=== PATIENT | female | born 1995 | race Caucasian/White ===

== ENCOUNTER 2021-01-08 20:32 | Emergency (ER) | payer OTHER, SELFPAY ==
[2021-01-08 20:35] VITALS: BP 152/84; PULSE 130; RESP 14; TEMP 37.2; O2SAT 99
[2021-01-08] MEDS: TET,DIPH,PERTUSS(ACELL),VAC/PF 0.5 ML SYRINGE IM (20:42)
--- NOTE | 2021-01-08 20:51 | ED.SKABFB ---
HPI - Skin/Abscess/Foreign Bdy General Chief complaint: Skin/Abscess/Foreign Body Stated complaint: RIGHT THUMB CUT Time Seen by Provider: 01/08/21 20:35 Source: patient Mode of arrival: Ambulatory Limitations: no limitations History of Present Illness HPI narrative: 25-year-old female nonsmoker with noncontributory medical history presents with her significant other and an avulsion type laceration to her right thumb suffered few hours ago. She was using a mandoline while preparing dinner when she accidentally cut herself. She was evaluated by a neighbor who was a nurse and had an episode of cleaning with Betadine and was wrapped very appropriately, bleeding its top prior to her arrival. Her last tetanus was 8 or 9 years ago. She denies any other injuries otherwise well and free of complaint. MD complaint: laceration Onset (ago): hour(s) Tetanus up to date: no Location: R hand Severity: mild Quality: aching Pain Consistency: constant Relieving factors: rest Exacerbating factors: movement Associated symptoms: denies other symptoms Treatments prior to arrival: bandages Related Data Allergies Allergy/AdvReac Type Severity Reaction Status Date / Time No Known Drug Allergies Allergy Verified 01/08/21 20:42 Review of Systems Constitutional Constitutional: Denies chills, Denies fatigue, Denies fever(s), Denies frequent falls, Denies lethargy and Denies weakness Eyes Eyes: Denies change in vision, Denies eye discharge, Denies irritation and Denies loss of vision ENT Ears, Nose, Mouth, and Throat: Denies change in voice, Denies dizziness, Denies neck pain, Denies sore throat and Denies throat swelling Cardiovascular Cardiovascular: Denies chest pain, Denies irregular heart rhythm, Denies lightheadedness, Denies palpitations, Denies dyspnea, Denies dyspnea on exertion and Denies orthopnea Respiratory Respiratory: Denies cough, Denies dyspnea, Denies dyspnea on exertion and Denies wheezing Gastrointestinal Gastrointestinal: Denies abdominal pain, Denies change in bowel habits, Denies diarrhea, Denies nausea and Denies vomiting Musculoskeletal Musculoskeletal: Denies neck pain and Denies numbness Integumentary/Breasts Skin/Breast: Denies pruritus, Denies erythema, Denies rash and Reports wounds Neurologic Neurologic: Denies behavioral changes, Denies confusion, Denies dizziness, Denies frequent falls, Denies loss of vision, Denies numbness and Denies weakness Psychiatric Psychiatric: Denies anxiety, Denies behavioral changes, Denies confusion, Denies depression, Denies homicidal ideation and Denies suicidal ideation Endocrine Endocrine: Denies fatigue, Denies flushing and Denies palpitations Hematologic/Lymphatic Hematologic/Lymphatic: Denies easy bruising Allergic/Immunologic Allergic/Immunologic: Denies urticaria, Denies throat swelling and Denies wheezing Patient History Social History Smoking Status: Never smoker Smoking Status: Never smoker alcohol intake frequency: 0-2 drinks per day Substance Use Type: does not use Exam Narrative Exam Narrative: GEN: AOx3 and in mild distress EYES: Pupils are equal, round, and reactive to light and accommodation. Extraoccular muscles are intact bilaterally. There is no subconjunctival hemorrhage or exudate. CHEST: Lungs are clear to auscultation bilaterally and free of wheezes, rales, or rhonchi. Tachycardic and regular rhythm, there are no murmurs, clicks, rubs, or gallops. There is no chest wall tenderness. ABD: Abdomen is soft and nontender. There is no guarding or rebound. Bowel sounds are normal in all 4 quadrants. There is no mass or organomegaly. EXT: Full painless ROM of all extremities with no loss of sensation or strength. SKIN: Warm, pink, and dry. No erythema or rash Initial Vital Signs Initial Vital Signs: Vital Signs Temperature 98.9 F 01/08/21 20:35 Pulse Rate 130 H 01/08/21 20:35 Respiratory Rate 14 01/08/21 20:35 Blood Pressure 152/84 H 01/08/21 20:35 Pulse Oximetry 99 01/08/21 20:35 Course Course Course Narrative: patient denies any chest pain, SOB, travel. She states she gets very nervous when visiting the doctor and her HR goes up. Discussed need for follow up or return if she develops CP, SOB Orders Ordered: Discontinued Medications Diphtheria/Tetanus/Acell Pertussis (Tet,Diph,Pertuss(Acell),Vac/Pf 0.5 Ml Syringe) 0.5 ml IM .ONCE ONE Stop: 01/08/21 20:38 Last Admin: 01/08/21 20:42 Dose: 0.5 ml Documented by: ZGELEYN Vital Signs Vital signs: Vital Signs - 8 hr 01/08/21 20:35 Temperature 98.9 F Pulse Rate 130 H Respiratory Rate 14 Blood Pressure 152/84 H Pulse Oximetry 99 Discharge Plan Departure Patient Disposition: Home Clinical Impression: Avulsion of skin of finger Instructions: DI for Avulsion Laceration (Not Requiring Sutures) Activity Restrictions/Additional Instructions: *You have been diagnosed with [avulsion laceration, not requiring sutures. Your tetanus was updated *What to do: *Take medications as directed: Tylenol or Motrin for pain *Follow up with your primary care provider in 2-3 days, call for an appointment. Let them know you were seen in the Emergency Department and that we ask that you be seen in follow up *Return to ER if you should have any new, worsening or concerning symptoms, such as [increased swelling, redness, red streaks, drainage or other bothersome symptoms]
[2021-01-08 20:52] VITALS: BP 152/84; PULSE 118; RESP 14; O2SAT 99
--- NOTE | 2021-01-08 20:52 | PC.NURSE ---
patient was dressed with a surgicel type hemostatic dressing and gauze with tape.
== END 2021-01-08 20:56 | disposition home or self-care (01) ==
PROVIDERS: Emergency Provider Emergency Medicine
DX: S61.001A Unspecified open wound of right thumb without damage to nail, initial encounter (principal); W45.8XXA Other foreign body or object entering through skin, initial encounter; Z23 Encounter for immunization
CPT/HCPCS: 90471; 99283; 90715

== ENCOUNTER → 2022-02-02 11:48 | Outpatient (CLI) | payer OTHER, SELFPAY ==
[2022-02-02 13:03] LABS: Appearance Urine UA CLEAR; Bilirubin Urine UA NEGATIVE (NEGATIVE); Color Urine UA YELLOW; Glucose Urine UA NEGATIVE (Negative); Ketones Urine UA NEGATIVE (NEGATIVE); Leukocyte Esterase Urine UA NEGATIVE (NEGATIVE); Nitrite Urine UA NEGATIVE (Negative); Occult Blood Urine UA NEGATIVE (Negative); Protein Urine UA NEGATIVE (Negative); Specific Gravity Urine UA 1.015 (1.000-1.035); Urobilinogen Urine UA 0.2 E.U./dL (0.2)
[2022-02-02 13:04] LABS: Add Manual Diff / Slide Review NO; Basophils Absolute Auto 0 /uL (0-100); Basophils Percent Auto 0.4 % (0-2); Eosinophils Absolute Auto 100 /uL (0-450); Eosinophils Percent Auto 1.2 % (2-4); Hemoglobin 13.7 g/dL (12.0-16.0); Lymphocytes Absolute Auto 1300 /uL (1100-4500); Lymphocytes Percent Auto 19.3 % (25-40); Mean Corpuscular HGB Conc 34.2 % (30-36); Mean Corpuscular Hemoglobin 29.8 PG (26-34); Mean Corpuscular Volume 87.1 fL (80-100); Monocytes Absolute Auto 400 /uL (0-900); Monocytes Percent Auto 5.6 % (3-14); Neutrophils Absolute Auto 5100 /uL (1500-7000); Neutrophils Percent Auto 73.5 % (50-75); Platelet Count 265 X10^3/uL (150-400); Red Blood Cell Count 4.59 X10^6/uL (4.0-5.2); Red Cell Distribution Width 13.5 % (11.6-14.8)
[2022-02-02 13:58] LABS: TSH w/ Reflex to FT4 2.46 uIU/mL (0.47-4.68)
[2022-02-03 10:56] LABS: RPR Screen Non Reactive (Non Reactive)
[2022-02-04 16:28] LABS: Hepatitis B Surface Antigen NEGATIVE s/c (NEGATIVE); Rubella Antibody IgG 9.8 IU/mL (>15)
[2022-02-04 16:43] LABS: HIV 1 & 2 Ab/Ag 4th Gen Combo NEGATIVE (NEGATIVE); Hep C Virus Ab w/Reflex Quant NEGATIVE s/c (NEGATIVE)
[2022-02-05 07:49] LABS: Varicella IgG Antibody 447 index (Immune >165)
== END ==
PROVIDERS: PCP Anesthesiology Pain Medicine; Referring Provider Obstetrics & Gynecology; Visit Provider Obstetrics & Gynecology
DX: Z34.02 Encounter for supervision of normal first pregnancy, second trimester (principal); Z3A.15 15 weeks gestation of pregnancy
CPT/HCPCS: 36415; 80055; 81003; 84443; 86787; 86803; 86850; 86900; 86901; 87086; 87389

== ENCOUNTER → 2022-03-15 15:11 | Outpatient (CLI) | payer OTHER, SELFPAY ==
--- NOTE | 2022-03-15 15:13 | DI.US.S_ITS ---
PROCEDURE: US OB >= 14 WEEKS FETUS INDICATIONS: ANATOMY SCAN OUTSIDE/PRIOR DATING DATA: Last menstrual period (LMP): 10/10/2022. LMP-based estimated date of delivery (XIOMARA): 07/17/2022. First dating scan (date and location): 12/10/2021. Estimated date of delivery (XIOMARA) from first dating scan: 07/18/2022 TECHNIQUE: Real-time scanning was performed of the fetus, with image documentation and biometric measurements. COMPARISON: [facility], , OB >= 14 WEEKS FETUS, 02/07/2022, 17:06. FINDINGS: General: A single living intrauterine gestation is present. Presentation: Breech. Placenta: Placental position is posterior , without previa. Amniotic fluid index: 13.2 cm, normal range is 5-24 cm. heart rate: 162 beats per minute. Maternal cervical canal: 5.1 cm long. Normal lower limit is 2.5 cm. biometrics: Biparietal diameter: 4.8 cm 20 weeks 4 days Head circumference: 19.7 cm 21 weeks 6 days Abdominal circumference: 17.2 cm 22 weeks 1 day Femur length: 4.0 cm 23 weeks 0 days Composite gestational age from initial scan: 22 weeks 1 day Composite gestational age from present scan: 21 weeks 6 days Estimated weight and percentile: 497 g 55th percentile Anatomic survey: Neuro: Ventricles are non-dilated at less than 10 mm. Cisterna magna is normal at 3-11 mm. Cerebellum is normal in size and morphology. Nuchal skin fold: Normal at less than 6 mm between 14-21 weeks gestational age. Face: Nose and lips, facial profile are normal. Spine: No evidence for spina bifida. Heart: 4-chambered heart is present, with normal ventricular outflow tracts. Diaphragm: Diaphragm is intact. Stomach: Left-sided stomach is present. Kidneys: No hydronephrosis. Normal is less than 5 mm in 2nd trimester, less than 7 mm in 3rd trimester. Cord: 3-vessel cord has orthotopic insertion. Bladder: Normal in size. Extremities: All 4 extremities identified. IMPRESSION: Single live intrauterine with ultrasound gestational age of 21 weeks 6 days today. Anatomy is within normal limits. We strive to produce accurate, complete, and clear reports of imaging services. To assist us in improving patient care, this report was composed using standard report templates and voice recognition software. Therefore, it may contain abnormal punctuation, insertions and/or omissions. Occasional wrong-word or sound-alike substitutions may occur. Though we review the report and make efforts to correct it, we do recommend that the report be read carefully in proper context to recognize any text inaccuracies. Dictated by: Paige Eden M.D. on 03/15/2022 at 17:15 Approved by: Paige Eden M.D. on 03/15/2022 at 17:18
== END ==
PROVIDERS: PCP Anesthesiology Pain Medicine; Referring Provider Obstetrics & Gynecology; Visit Provider Obstetrics & Gynecology
DX: Z34.02 Encounter for supervision of normal first pregnancy, second trimester (principal); Z3A.21 21 weeks gestation of pregnancy
CPT/HCPCS: 76811

== ENCOUNTER → 2022-04-12 13:48 | Outpatient (CLI) | payer OTHER, SELFPAY ==
[2022-04-12 16:51] LABS: Hematocrit 35.2 % (36-46); Hemoglobin 12.5 g/dL (12.0-16.0)
[2022-04-13 02:16] LABS: GTT (PREG) 1 Hour PP 50gm Dose 94 mg/dL (76-139)
== END ==
PROVIDERS: PCP Anesthesiology Pain Medicine; Referring Provider Obstetrics & Gynecology; Visit Provider Obstetrics & Gynecology
DX: Z34.03 Encounter for supervision of normal first pregnancy, third trimester (principal); Z3A.28 28 weeks gestation of pregnancy
CPT/HCPCS: 36415; 82950; 85014; 85018

== ENCOUNTER → 2022-04-30 17:08 | Outpatient (CLI) | payer OTHER, SELFPAY ==
[2022-04-30 18:19] LABS: Add Manual Diff / Slide Review NO; Basophils Absolute Auto 0 /uL (0-100); Basophils Percent Auto 0.4 % (0-2); Eosinophils Absolute Auto 100 /uL (0-450); Eosinophils Percent Auto 1.1 % (2-4); Hematocrit 37.5 % (36-46); Hemoglobin 13.1 g/dL (12.0-16.0); Lymphocytes Absolute Auto 1100 /uL (1100-4500); Lymphocytes Percent Auto 14.4 % (25-40); Mean Corpuscular HGB Conc 34.8 % (30-36); Mean Corpuscular Hemoglobin 30.9 PG (26-34); Mean Corpuscular Volume 88.8 fL (80-100); Monocytes Absolute Auto 400 /uL (0-900); Monocytes Percent Auto 5.3 % (3-14); Neutrophils Absolute Auto 6200 /uL (1500-7000); Neutrophils Percent Auto 78.8 % (50-75); Platelet Count 280 X10^3/uL (150-400); Red Blood Cell Count 4.22 X10^6/uL (4.0-5.2); Red Cell Distribution Width 13.3 % (11.6-14.8); White Blood Cell Count 7.9 X10^3/uL (4.5-11.0)
[2022-04-30 18:24] LABS: Alanine Aminotransferase 13 IU/L (<35); Albumin 4.2 g/dL (3.5-5.0); Albumin Globulin Ratio 1.2 (1.0-2.8); Alkaline Phosphatase 128 U/L (38-126); Aspartate Aminotransferase 26 IU/L (14-36); BUN Creatinine Ratio 10.4 (6-22); Bilirubin Total 0.6 mg/dL (0.2-1.3); Blood Urea Nitrogen 7 mg/dL (7-17); Calcium 8.8 mg/dL (8.4-10.2); Carbon Dioxide 26 mmol/L (22-32); Chloride 100 mmol/L (98-107); Estimated Glomerular Filt Rate > 60 mL/min (>60); Globulin 3.6 g/dL (1.7-4.1); Glucose 87 mg/dL (70-100); HEMOLYSIS < 15 (0-50); Lactate Dehydrogenase 440 U/L (313-618); Potassium 3.7 mmol/L (3.4-5.1); Sodium 134 mmol/L (137-145); Total Protein 7.8 g/dL (6.3-8.2); Uric Acid 4.8 mg/dL (2.5-6.2)
[2022-04-30 18:50] LABS: Creatinine Urine Random 64.5 mg/dL; Protein (Total) Urine Random 11 mg/dL (0-12); Protein Creatinine Ratio Urine 0.17 GRAM/24H
[2022-04-30 18:54] LABS: TSH w/ Reflex to FT4 4.17 uIU/mL (0.47-4.68)
== END ==
PROVIDERS: PCP Anesthesiology Pain Medicine; Referring Provider Obstetrics & Gynecology; Visit Provider Obstetrics & Gynecology
DX: Z34.00 Encounter for supervision of normal first pregnancy, unspecified trimester (principal)
CPT/HCPCS: 36415; 59025; 80053; 82570; 83615; 84156; 84443; 84550; 85025

== ENCOUNTER 2022-04-30 17:42 | Observation (INO) | payer OTHER, SELFPAY ==
--- NOTE | 2022-04-30 17:53 | PM.OBTRLD ---
Visit Information Visit Information Date of evaluation: 04/30/22 Primary OB Provider: Samantha Howe Reason for Evaluation: Yes non-stress test Comments/Additional reasons for admission: Patient sent for NST for elevated diastolic BPs at 28+6 week visit, in the setting of anxiety and with no PIH symptoms. PIH labs pending, otherwise uncomplicated . Vital Signs Vital Signs: 134/79, 124/76. HR 90s. PFSH Medical History (Updated 12/11/21 @ 21:42 by Afshan Ochoa) Abnormal Pap smear of cervix Anxiety Cyst of thyroid Surgical History (Updated 12/11/21 @ 21:42 by Afshan Ochoa) Anesthesia H/O partial thyroidectomy (~08/20/21) H/O wisdom tooth extraction Family History (Updated 12/11/21 @ 21:44 by Afshan Ochoa) Grandfather Hypertension Hyperlipidemia History of heart disease Grandfather History of heart disease Hypertension Hyperlipidemia Grandmother Cancer Social History marital status: household members: spouse lives independently: Yes housing: apartment pets and animals: Yes (Dog) education level: college occupational status: employed current occupational exposures/hazards: No travel history: recent ( - October) seatbelt use: always water heater temp set < 120 deg: Yes working smoke detector in home: Yes fire extinguisher in home: Yes carbon monox detector in home: Yes firearms in home: No do you feel safe at home: Yes Smoking Status: Never smoker second hand exposure: No alcohol intake: former substance use type: does not use during the past year weight has: remained stable well-balanced diet: daily or most days daily servings fruits/ve-4 caffeine: No (200mg per day) Type(s) of exercise: walking and additional (basketball) frequency: 1-2 times per week Review of Systems Constitutional Constitutional: Reports system reviewed and no additional complaints, except as documented Evaluation Evaluation Baseline heart rate: 140 Variability: Moderate (11-25) monitor accelerations: Present Monitor Decelerations: Absent Category of Tracing: Reactive Status: Category l Diagnosis, Plan/Disposition Plan/Disposition Plan: Home with routine precautions. OB Disposition: home
== END 2022-04-30 18:16 | disposition home or self-care (01) ==
LOC: LABOR 17:43
PROVIDERS: Admitting Provider Obstetrics & Gynecology; PCP Anesthesiology Pain Medicine; Referring Provider Obstetrics & Gynecology; Visit Provider Obstetrics & Gynecology
DX: Z34.00 Encounter for supervision of normal first pregnancy, unspecified trimester (principal); O26.893 Other specified pregnancy related conditions, third trimester; Z3A.28 28 weeks gestation of pregnancy; R03.0 Elevated blood-pressure reading, without diagnosis of hypertension
CPT/HCPCS: 36415; 59025; 80053; 82570; 83615; 84156; 84443; 84550; 85025; G0378; G0379

== ENCOUNTER → 2022-06-19 17:55 | Outpatient (CLI) | payer OTHER, SELFPAY ==
[2022-06-20 13:50] LABS: Strep Grp B PCR NEG for Grp B Strep
== END ==
PROVIDERS: PCP Anesthesiology Pain Medicine; Visit Provider Obstetrics & Gynecology
DX: Z34.03 Encounter for supervision of normal first pregnancy, third trimester (principal); Z3A.36 36 weeks gestation of pregnancy
CPT/HCPCS: 87653

== ENCOUNTER → 2022-07-05 16:26 | Outpatient (CLI) | payer OTHER, SELFPAY ==
[2022-07-05 17:08] LABS: Add Manual Diff / Slide Review NO; Basophils Absolute Auto 0 /uL (0-100); Basophils Percent Auto 0.3 % (0-2); Eosinophils Absolute Auto 200 /uL (0-450); Eosinophils Percent Auto 1.6 % (2-4); Hematocrit 34.1 % (36-46); Lymphocytes Absolute Auto 1200 /uL (1100-4500); Lymphocytes Percent Auto 12.3 % (25-40); Mean Corpuscular HGB Conc 35.1 % (30-36); Mean Corpuscular Hemoglobin 30.7 PG (26-34); Mean Corpuscular Volume 87.4 fL (80-100); Monocytes Absolute Auto 500 /uL (0-900); Monocytes Percent Auto 5.6 % (3-14); Neutrophils Absolute Auto 7500 /uL (1500-7000); Neutrophils Percent Auto 80.2 % (50-75); Platelet Count 263 X10^3/uL (150-400); White Blood Cell Count 9.4 X10^3/uL (4.5-11.0)
[2022-07-05 17:25] LABS: Alanine Aminotransferase 13 IU/L (<35); Albumin 3.7 g/dL (3.5-5.0); Albumin Globulin Ratio 1.1 (1.0-2.8); Alkaline Phosphatase 163 U/L (38-126); Aspartate Aminotransferase 23 IU/L (14-36); Bilirubin Total 0.5 mg/dL (0.2-1.3); Blood Urea Nitrogen 3 mg/dL (7-17); Calcium 8.5 mg/dL (8.4-10.2); Carbon Dioxide 26 mmol/L (22-32); Chloride 103 mmol/L (98-107); Estimated Glomerular Filt Rate > 60 mL/min (>60); Globulin 3.4 g/dL (1.7-4.1); Glucose 133 mg/dL (70-100); HEMOLYSIS < 15 (0-50); Sodium 135 mmol/L (137-145); Total Protein 7.1 g/dL (6.3-8.2); Uric Acid 4.9 mg/dL (2.5-6.2)
[2022-07-05 18:07] LABS: Creatinine Urine Random 66.7 mg/dL
[2022-07-05 18:14] LABS: Protein (Total) Urine Random 262 mg/dL (0-12); Protein Creatinine Ratio Urine 3.92 GRAM/24H
== END ==
PROVIDERS: PCP Anesthesiology Pain Medicine; Referring Provider Obstetrics & Gynecology; Visit Provider Obstetrics & Gynecology
DX: O12.10 Gestational proteinuria, unspecified trimester (principal); R03.0 Elevated blood-pressure reading, without diagnosis of hypertension; Z3A.00 Weeks of gestation of pregnancy not specified
CPT/HCPCS: 36415; 80053; 82570; 84156; 84550; 85025

== ENCOUNTER → 2022-07-06 09:27 | Outpatient (CLI) | payer OTHER, SELFPAY ==
[2022-07-06 12:26] LABS: Appearance Urine UA CLEAR; Bilirubin Urine UA NEGATIVE (NEGATIVE); Color Urine UA YELLOW; Glucose Urine UA NEGATIVE (Negative); Ketones Urine UA NEGATIVE (NEGATIVE); Leukocyte Esterase Urine UA 3+ (NEGATIVE); Nitrite Urine UA NEGATIVE (Negative); Occult Blood Urine UA TRACE-LYSED (Negative); Protein Urine UA NEGATIVE (Negative); Urobilinogen Urine UA 0.2 E.U./dL (0.2)
[2022-07-06 12:33] LABS: pH Urine UA 7.5 (4.5-8.0)
[2022-07-06 12:35] LABS: Amorphous Sediment Urine 1+; Bacteria Urine Moderate (10-30); Culture Indicated Urine Specimen Cultured; RBC Urine None Seen (0-5/HPF); Squamous Epithelial Cell Urine 1-5 /HPF (0-5/HPF); Transitional Epi Cells Urine 1-5/HPF (0-5/HPF); WBC Urine 10-30/HPF (0-5/HPF)
== END ==
PROVIDERS: PCP Anesthesiology Pain Medicine; Referring Provider Obstetrics & Gynecology; Visit Provider Obstetrics & Gynecology
DX: O12.10 Gestational proteinuria, unspecified trimester (principal); R31.29 Other microscopic hematuria
CPT/HCPCS: 81001; 87086

== ENCOUNTER → 2022-07-08 08:41 | Outpatient (CLI) | payer OTHER, SELFPAY ==
[2022-07-08 11:40] LABS: Collection Time Urine 24 Hours; Protein (Total) Urine Random 72 mg/dL (0-12); Total Protein 24 Hour Urine 2124 mg/day (42-225); Total Volume Urine 2950 mL
== END ==
PROVIDERS: PCP Anesthesiology Pain Medicine; Referring Provider Obstetrics & Gynecology; Visit Provider Obstetrics & Gynecology
DX: O12.10 Gestational proteinuria, unspecified trimester (principal); Z3A.00 Weeks of gestation of pregnancy not specified
CPT/HCPCS: 84156

== ENCOUNTER 2022-07-10 14:59 | Outpatient (CLI) | payer OTHER, SELFPAY ==
--- NOTE | 2022-07-16 13:58 | PM.OBTRLD ---
Visit Information Visit Information Date of evaluation: 07/10/22 Primary OB Provider: Manju Bolton Reason for Evaluation: Yes non-stress test Comments/Additional reasons for admission: NST for decreased movement at 39 weeks LARISSA in office 12.4 PFSH Medical History Abnormal Pap smear of cervix Anxiety Cyst of thyroid Surgical History Anesthesia H/O partial thyroidectomy (~08/20/21) H/O wisdom tooth extraction Family History Grandfather Hypertension Hyperlipidemia History of heart disease Grandfather History of heart disease Hypertension Hyperlipidemia Grandmother Cancer Social History marital status: household members: spouse lives independently: Yes housing: apartment pets and animals: Yes (Dog) education level: college occupational status: employed current occupational exposures/hazards: No travel history: recent ( - October) seatbelt use: always water heater temp set < 120 deg: Yes working smoke detector in home: Yes fire extinguisher in home: Yes carbon monox detector in home: Yes firearms in home: No do you feel safe at home: Yes Smoking Status: Never smoker second hand exposure: No alcohol intake: former substance use type: does not use during the past year weight has: remained stable well-balanced diet: daily or most days daily servings fruits/ve-4 caffeine: No (200mg per day) Type(s) of exercise: walking and additional (basketball) frequency: 1-2 times per week Evaluation Evaluation Baseline heart rate: 135 Variability: Moderate (11-25) monitor accelerations: Present Monitor Decelerations: Absent Uterine Contraction Intensity: Mild Category of Tracing: Reactive Status: Category l Comments: irregular contractions, q 3 minutes, then infrequent Diagnosis, Plan/Disposition Plan/Disposition Plan: Thirty-nine weeks, feeling episodes of movement but somewhat less past few days. Reactive NST. LARISSA 12 in the office. Patient not feeling any contractions. Follow-up in 1 week for routine visit, earlier as needed. OB Disposition: home
== END 2022-07-10 15:45 | disposition home or self-care (01) ==
LOC: OB 07-12 08:30
PROVIDERS: PCP Anesthesiology Pain Medicine; Referring Provider Obstetrics & Gynecology; Visit Provider Obstetrics & Gynecology
DX: O36.8130 Decreased fetal movements, third trimester, not applicable or unspecified (principal); Z3A.39 39 weeks gestation of pregnancy
CPT/HCPCS: 59025; G0378; G0379

== ENCOUNTER 2022-07-17 18:03 | Outpatient (CLI) | payer OTHER, SELFPAY ==
--- NOTE | 2022-07-17 19:37 | P.TNLD_ITS ---
Visit Information Visit Information Date of evaluation: 07/17/22 Primary OB Provider: Manju Bolton Reason for Evaluation: Yes non-stress test Comments/Additional reasons for admission: [facility] for term , [facility] Medical History Abnormal Pap smear of cervix Anxiety Cyst of thyroid Surgical History Anesthesia H/O partial thyroidectomy (~08/20/21) H/O wisdom tooth extraction Family History Grandfather Hypertension Hyperlipidemia History of heart disease Grandfather History of heart disease Hypertension Hyperlipidemia Grandmother Cancer Social History marital status: household members: spouse lives independently: Yes housing: apartment pets and animals: Yes (Dog) education level: college occupational status: employed current occupational exposures/hazards: No travel history: recent ( - October) seatbelt use: always water heater temp set < 120 deg: Yes working smoke detector in home: Yes fire extinguisher in home: Yes carbon monox detector in home: Yes firearms in home: No do you feel safe at home: Yes Smoking Status: Never smoker second hand exposure: No alcohol intake: former substance use type: does not use during the past year weight has: remained stable well-balanced diet: daily or most days daily servings fruits/ve-4 caffeine: No (200mg per day) Type(s) of exercise: walking and additional (basketball) frequency: 1-2 times per week Evaluation Evaluation Baseline heart rate: 135 Variability: Moderate (11-25) monitor accelerations: Present Monitor Decelerations: Absent Contraction Frequency (minutes): 4 Uterine Contraction Intensity: Mild Category of Tracing: Reactive Status: Category l Cervical dilation (cm): 0 Cervical effacement (%): 0 station: -3 Comments: cervical exam in office Diagnosis, Plan/Disposition Plan/Disposition Plan: Here for scheduled nonstress test for term , 40 weeks 0 days today. NST is reactive, EFM category 1, reassuring. She is having contractions every 3-4 minutes, only feeling general crampiness, not noting distinct contractions. Labor precautions reviewed OB Disposition: home
== END 2022-07-17 18:44 | disposition home or self-care (01) ==
LOC: OB 07-18 17:10
PROVIDERS: PCP Anesthesiology Pain Medicine; Referring Provider Obstetrics & Gynecology; Visit Provider Obstetrics & Gynecology
DX: O48.0 Post-term pregnancy (principal); Z3A.40 40 weeks gestation of pregnancy
CPT/HCPCS: 59025; G0378; G0379

== ENCOUNTER 2022-07-20 04:02 | Inpatient (IN) | payer OTHER, SELFPAY ==
[2022-07-20] MEDS: LACTATED RINGERS 1,000 ML 100 ML IV ×2 (04:53→13:00)
[2022-07-20 05:13] LABS: BUN Creatinine Ratio 6.9 (6-22); Blood Urea Nitrogen 5 mg/dL (7-17); Calcium 9.1 mg/dL (8.4-10.2); Carbon Dioxide 23 mmol/L (22-32); Chloride 103 mmol/L (98-107); Estimated Glomerular Filt Rate > 60 mL/min (>60); Glucose 102 mg/dL (70-100); HEMOLYSIS < 15 (0-50); Hematocrit 37.1 % (36-46); Mean Corpuscular HGB Conc 35.1 % (30-36); Mean Corpuscular Hemoglobin 30.2 PG (26-34); Mean Corpuscular Volume 85.9 fL (80-100); Platelet Count 318 X10^3/uL (150-400); Potassium 3.7 mmol/L (3.4-5.1); Red Blood Cell Count 4.32 X10^6/uL (4.0-5.2); Red Cell Distribution Width 13.2 % (11.6-14.8); Sodium 137 mmol/L (137-145); White Blood Cell Count 10.7 X10^3/uL (4.5-11.0)
[2022-07-20 05:14] LABS: Add Manual Diff / Slide Review YES
[2022-07-20 05:47] VITALS: BP 123/78
[2022-07-20 05:59] LABS: COVID19 -Nasal RAPID Negative (Negative)
[2022-07-20 06:44] LABS: Neutrophils Absolute Manual 7918 /uL (3000-5900); RBC Morphology Normal Morphology; Total Cells Counted 100
--- NOTE | 2022-07-20 11:49 | P.HPOB_ITS ---
OB HPI Date/Time Date of admission: 07/20/22 Date Patient Seen: 07/20/22 Time Patient Seen: 08:55 History of Present Condition Chief complaint: labor XIOMARA Calculator Estimated Delivery Date Method Current WG Current Estimate 07/17/22 LMP (Uncertain) 40w 3d Other Estimates 07/18/22 Ultrasound #1 40w 2d Estimated Gestational Age (weeks): 40+3 : 1 Para: 0 care: good care, initiated at week # (8), number of visits (14) and pounds weight gain (18) Dating criteria OB: LMP confirmed by 1st trimester US Ultrasounds: normal 1st trimester US and normal mid trimester US Obstetrical complications: none Medical complications OB: none Preadmission Labs Last OB Lab Results: Blood Type O Positive 07/20/22 04:45 Antibody Screen Negative 07/20/22 04:45 Hematocrit 37.1 % (36-46) 07/20/22 04:45 Hemoglobin 13.0 g/dL (12.0-16.0) 07/20/22 04:45 Hepatitis B Surface Antigen Negative s/c (NEGATIVE) 02/02/22 11 :54 Hepatitis C Antibody Negative s/c (NEGATIVE) 02/02/22 11:54 Rubella Antibody 9.8 IU/mL (>15) L 02/02/22 11:54 Varicella-Zoster IgG Antibody 447 index (Immune >165) 02/02/22 11:54 Glucose 1 Hour 94 mg/dL (76-139) 04/12/22 15:42 Group B Streptococcus (PCR) Neg for grp b strep 06/19/22 17:55 -: Chlamydia screen: negative, Gonorrhea screen: negative and Urine: positive (lacto, alpha strept---Tx'd) -: PAP smear: Normal External Labs -: Urine: positive (lacto, alpha strept---Tx'd) Evaluation Evaluation Baseline heart rate: 150 Variability: Moderate (11-25) monitor accelerations: Present Monitor Decelerations: Absent Contraction Frequency (minutes): 6 Uterine Contraction Intensity: Mild Status: Category l Dilation (cm): 1 Effacement (%): 75 Dilation: 1-2 cm Effacement: 60-70% station: -1 Position of cervix: posterior Consistency: medium Gallardo score: 6 PFSH Medical History Abnormal Pap smear of cervix Anxiety Cyst of thyroid Surgical History Anesthesia H/O partial thyroidectomy (~08/20/21) H/O wisdom tooth extraction Family History Grandfather Hypertension Hyperlipidemia History of heart disease Grandfather History of heart disease Hypertension Hyperlipidemia Grandmother Cancer Social History marital status: household members: spouse lives independently: Yes housing: apartment pets and animals: Yes (Dog) education level: college occupational status: employed current occupational exposures/hazards: No travel history: recent ( - October) seatbelt use: always water heater temp set < 120 deg: Yes working smoke detector in home: Yes fire extinguisher in home: Yes carbon monox detector in home: Yes firearms in home: No do you feel safe at home: Yes Smoking Status: Never smoker second hand exposure: No alcohol intake: former substance use type: does not use during the past year weight has: remained stable well-balanced diet: daily or most days daily servings fruits/ve-4 caffeine: No (200mg per day) Type(s) of exercise: walking and additional (basketball) frequency: 1-2 times per week Meds Home Medications and Allergies Home Medications Medication Instructions Recorded Confirmed Type prenat.vits,nabila,iwo-rodb-shrdj 1 tab PO DAILY 12/06/21 07/20/22 History Double Electric Breast Pump #1 ea 07/15/22 07/20/22 Rx Allergies Allergy/AdvReac Type Severity Reaction Status Date / Time No Known Drug Allergies Allergy Verified 07/10/22 14:28 OB Exam Narrative Exam Narrative: Generally: Patient is sitting up in bed, no acute distress Lungs: Clear to auscultation bilaterally Cardiovascular: Rate Fundal height: 40 cm Estimated weight: 7 1/2 to 8 lb Extremities: No edema Objective Labs Result Diagrams: 07/20/22 04:45 07/20/22 04:45 Labs: Laboratory Results - last 24 hr 07/20/22 07/20/22 07/20/22 04:45 04:45 04:45 WBC 10.7 RBC 4.32 Hgb 13.0 Hct 37.1 MCV 85.9 MCH 30.2 MCHC 35.1 RDW 13.2 Plt Count 318 Neut % (Auto) Not Reportable Lymph % (Auto) Not Reportable [place] % (Auto) Not Reportable Eos % (Auto) Not Reportable Baso % (Auto) Not Reportable Lymph # (Auto) Not Reportable [place] # (Auto) Not Reportable Baso # (Auto) Not Reportable Total Counted 100 Seg Neutrophils % 74.0 H Lymphocytes % (Manual) 17.0 L Atypical Lymphs % 2.0 H Monocytes % (Manual) 5.0 Eosinophils % (Manual) 2.0 Neutrophils # (Manual) 7918 H RBC Morphology Normal morphology Sodium 137 Potassium 3.7 Chloride 103 Carbon Dioxide 23 BUN 5 L Creatinine 0.72 Estimated GFR > 60 BUN/Creatinine Ratio 6.9 Glucose 102 H Calcium 9.1 SARS-CoV-2 (PCR) Blood Type O Positive Antibody Screen Negative 07/20/22 05:57 WBC RBC Hgb Hct MCV MCH MCHC RDW Plt Count Neut % (Auto) Lymph % (Auto) [place] % (Auto) Eos % (Auto) Baso % (Auto) Lymph # (Auto) [place] # (Auto) Baso # (Auto) Total Counted Seg Neutrophils % Lymphocytes % (Manual) Atypical Lymphs % Monocytes % (Manual) Eosinophils % (Manual) Neutrophils # (Manual) RBC Morphology Sodium Potassium Chloride Carbon Dioxide BUN Creatinine Estimated GFR BUN/Creatinine Ratio Glucose Calcium SARS-CoV-2 (PCR) Negative Blood Type Antibody Screen Assessment and Plan Assessment and Plan Assessment and Plan narrative: Assessment: 26-year-old 1 para 0 at 40-,3/7 weeks gestation status post spontaneous rupture of membranes with clear amniotic fluid at 3:30 a.m. No signs and symptoms of chorioamnionitis No regular contraction Plan: Oral misoprostol 25 mcg q.4 hours Epidural as necessary Expected management to spontaneous vaginal delivery Time Spent with Patient Total time spent with greater than 50% in coordination of care (as documented) at patient's floor/unit and/or counseling patient:: 15-24 minutes
[2022-07-20 13:41] VITALS: BP 122/68; PULSE 137
[2022-07-20] MEDS: NITROGLYCERIN 0.4 MG SL TAB SL (13:41)
--- NOTE | 2022-07-20 16:06 | PM.EVENT ---
Event Note Date Patient Seen: 07/20/22 Time Patient Seen: 13:30 Event Note (Rapid Response, Code, or fall): Called to see patient for decelerations in the heart rate. Patient feeling intense rectal pressure. On vaginal exam she was 8-9 cm/100% effaced/-1 station. heart rate baseline in the 1 teens. She was having late decels down to the 90s. Contractions after 1 dose of oral Cytotec 25 mcg were about every minute. Not a lot of resting in between. Patient's baseline heart rate was in the 130s. A decision was made not to give terbutaline, 1 dose of 0.4 mg of sublingual nitroglycerin was given. The contractions spaced out to about every 2-3 minutes. heart rate stabilized without late decelerations. Patient was given a dose of NS a cane to help with rectal pressure. Her blood pressure was stable. Plan: Observe and till completely dilated and then begin pushing
[2022-07-20] MEDS: FENT 2MCG/ML BUPIV 0.125% EPI 200 MCG/100 ML PLAST..BAG 12 MCG EPIDURAL (16:40)
[2022-07-20] MEDS: OXYTOCIN PREMIX 30 UNIT/500 ML PLAST..BAG 200 UNIT IV (17:20)
--- NOTE | 2022-07-20 17:39 | P.PCNOB_ITS ---
Events: Labor Augmentation Labor & Delivery Delivery date: 07/20/22 Intrapartal Events: Hypertonic Dysfunction and Intolerance Cervical ripening method: per misoprostal protocol Induction method: none Delivery augmentation: rupture of membranes Delivery monitor: external FHT and external uterine Route of delivery: Episiotomy description: None L&D Laceration Description: Perineal - 1st Degree and Vaginal - 1st Degree Delivery repair: vicryl and chromic Quantitative Blood Loss: 100 Anesthesia Type: Epidural Complications: None Narrative: Patient complete and pushed for an hour and 12 minutes. At 5:02 p.m., a live male delivered in the ROP presentation over an intact perineum. The remainder of the body delivered without difficulty and was placed on mom's abdomen. After the cord stopped pulsing, the cord was double clamped and cut. Cord bloods were obtained. The placenta delivered intact with a three-vessel cord at 5:22 p.m.. Pitocin was given in the IV fluids. The fundus was massaged to firm. There was a first-degree vaginal/perineal laceration which was repaired with 2 0 Vicryl and 2-0 chromic in the usual fashion. Hemostasis was achieved. Apgars 9 at 1 minute and 9 at 5 minutes. Epidural analgesia. . Mom and stable to recovery. [place] Baby 1: gender: Male Presentation: vertex Position: Left Occiput Posterior Placenta delivery description: Spontaneous Cord Vessel Description: 3 Vessels score (1 min): 9 score (5 min): 9 weight: 8 lb 9.5 oz Plan for aftercare: Routine care
[2022-07-21 06:35] LABS: Hematocrit 31.1 % (36-46); Hemoglobin 10.6 g/dL (12.0-16.0)
[2022-07-21] MEDS: IBUPROFEN 600 MG TABLET PO (07:21)
--- NOTE | 2022-07-21 12:05 | P.DS_ITS ---
Discharge Providers Provider Date of admission: 07/20/22 04:02 Discharge Date: 07/21/22 Primary care physician: Gosia Alfredo MD Consults: 07/21/22 17:35 Consult to Compressor Battery Pellets Routine Comment: Discharge provider: Tonia Burnette MD Summary Hospital Course Date Patient Seen: 07/21/22 Time Patient Seen: 12:06 Diagnoses: 40+3 weeks gestation Misoprostol cervical ripening Epidural analgesia Spontaneous vaginal delivery First-degree perineal/vaginal laceration repair Hospital Course: Patient is a 26-year-old 1 para 1 day # 1 status post spontaneous vaginal delivery. She presented on July 20, 2022 with spontaneous rupture of membranes with clear fluid. She was not beba regularly. She received 1 dose of oral misoprostol 25 mcg. This put her into active labor. She received an epidural for pain management. She progressed to complete dilation and had a spontaneous vaginal delivery without complication. Her course was unremarkable. She is discharged home on day # 1. Peripartum Data Delivery Method: Natural Vaginal Laceration Description: Perineal - 1st Degree and Vaginal - 1st Degree Episiotomy description: None Procedures: Misoprostol cervical ripening Epidural analgesia Spontaneous vaginal delivery First-degree vaginal/perineal laceration repair complications: none [place] 1: Gender: Male Status at Discharge Cognitive/behavioral status at discharge: oriented Functional status at discharge: independent ambulation Overall status at discharge: patient is progressing back to baseline Time Spent with Patient Time attestation: Total time spent providing and/or coordinating discharge services: Time spent: Less than 30 minutes Objective Labs Result Diagrams: 07/21/22 06:20 07/20/22 04:45 Labs: Laboratory Results - last 24 hr 07/21/22 06:20 Hgb 10.6 L Hct 31.1 L Exam Narrative Exam Narrative: Generally: Patient walking around in room, no acute distress Fundus: Firm at U -1 Extremities: Trace edema, negative Homans Discharge Plan Discharge Plan Patient Disposition: Home Provider Discharge Comment: Call with fever, chills, or bleeding vaginally more than a pad in an hour Ibuprofen 600 mg every 6 hours as needed for cramping Tylenol 650 mg every 6 hours as needed Discharge orders & Medications Prescriptions: Continued prenat.vits,nabila,[id number] Tablet 1 tab PO DAILY No Action (DME) Double Electric Breast Pump See Rx Instructions .Route .MEDSUPPLY Qty: 1 0RF Rx Instructions: As directed Follow up/Referrals: Tonia Burnette MD [Physician] - 6 Weeks (My office will call patient to schedule a [address] Bolton) Diet/Activity/Treatments Diet: Regular Activity: Nothing in the vagina for 6 weeks Skin/Wound/Dressing Care Report to your healthcare provider any signs of infection, such as:: chills, fever, increased pain and unusual drainage Visit Report/Discharge Packet Instructions: DI for Labor and Delivery, Vaginal Discharge Data Primary Care Provider: Gosia Alfredo Attending Provider: Tonia Burnette
== END 2022-07-21 17:10 | disposition home or self-care (01) | DRG 807 ==
PROVIDERS: Obstetrics & Gynecology; Admitting Provider Obstetrics & Gynecology; PCP Anesthesiology Pain Medicine; Referring Provider Obstetrics & Gynecology; Visit Provider Obstetrics & Gynecology
DX: O42.02 Full-term premature rupture of membranes, onset of labor within 24 hours of rupture (principal); Z37.0 Single live birth; O76 Abnormality in fetal heart rate and rhythm complicating labor and delivery; Z3A.40 40 weeks gestation of pregnancy; O70.0 First degree perineal laceration during delivery; Z20.822 Contact with and (suspected) exposure to COVID-19
CPT/HCPCS: 01967; 36415; 59050; 59400; 59409; 80048; 85007; 85014; 85018; 85025; 86850; 86900; 86901; 87635; C9803; G0378; G0379; J2590

== ENCOUNTER 2023-10-09 20:29 | Emergency (ER) | payer OTHER, SELFPAY ==
[2023-10-09 20:32] VITALS: BP 139/95; PULSE 113; RESP 18; TEMP 36.9; O2SAT 100; BMI 25.8
--- NOTE | 2023-10-09 21:15 | ED_ITS ---
HPI - Headache General Chief Complaint: Headache Stated Complaint: tingly, headache Time Seen by Provider: 10/09/23 20:46 Mode of arrival: Ambulatory History of Present Illness HPI Narrative: 28-year-old female. For the past several days/weeks she is had issues with a left-sided headache. Prior to the onset to this headache several weeks ago she is not had regular headaches. Has seen her primary doctor. There is a referral to have a MRI in approximately 2 weeks from now. She has taken ibuprofen for the headache. Today she started to have tingling in her hands and in her feet. She states both of her hands both of her feet. Has no weakness. No vision changes. No sore throat. No neck pain. No dizziness. Related Data Home Medications Medication Instructions Recorded Confirmed prenat.vits,nabila,[id number] 1 tab PO DAILY 12/06/21 09/02/22 Previous Rx's Medication Instructions Recorded Double Electric Breast Pump #1 ea 07/15/22 Allergies Allergy/AdvReac Type Severity Reaction Status Date / Time acetaminophen AdvReac Verified 10/09/23 20:42 Review of Systems Constitutional Constitutional: Reports system reviewed and no additional complaints, except as documented ENT Ears, Nose, Mouth, and Throat: Reports system reviewed and no additional complaints, except as documented Cardiovascular Cardiovascular: Reports system reviewed and no additional complaints, except as documented Respiratory Respiratory: Reports system reviewed and no additional complaints, except as doc umented Integumentary/Breasts Skin/Breast: Reports system reviewed and no additional complaints, except as documented Neurologic Neurologic: Reports system reviewed and no additional complaints, except as documented Hematologic/Lymphatic On Anticoagulants: No Patient History Medical History Abnormal Pap smear of cervix Cyst of thyroid Anxiety Surgical History Anesthesia H/O partial thyroidectomy (~08/20/21) H/O wisdom tooth extraction Family History Grandfather Hypertension Hyperlipidemia History of heart disease Grandfather History of heart disease Hypertension Hyperlipidemia Grandmother Cancer Social History marital status: household members: spouse lives independently: Yes housing: apartment pets and animals: Yes (Dog) education level: college occupational status: employed current occupational exposures/hazards: No travel history: recent ( - October) seatbelt use: always water heater temp set < 120 deg: Yes working smoke detector in home: Yes fire extinguisher in home: Yes carbon monox detector in home: Yes firearms in home: No do you feel safe at home: Yes Smoking Status: Never smoker second hand exposure: No alcohol intake: former substance use type: does not use during the past year weight has: remained stable well-balanced diet: daily or most days daily servings fruits/ve-4 caffeine: No (200mg per day) Type(s) of exercise: walking and additional (basketball) frequency: 1-2 times per week Smoking Status: Never smoker alcohol intake frequency: 0-2 drinks per day Substance Use Type: does not use Exam Initial Vital Signs Initial Vital Signs: Vital Signs Temperature 98.4 F 10/09/23 20:32 Pulse Rate 113 H 10/09/23 20:32 Respiratory Rate 18 10/09/23 20:32 Blood Pressure 139/95 H 10/09/23 20:32 Pulse Oximetry 100 10/09/23 20:32 Oxygen Delivery Method Room Air 10/09/23 20:32 HENMT Head: normal to inspection and normocephalic Ears: TM's normal bilaterally Face and sinus: normal facial exam Resp Effort & Inspection: normal respiratory effort Auscultation: clear to auscultation bilaterally Cardio Rate: regular rate Rhythm: regular rhythm GI Inspection: normal to inspection Skin General: no rashes or lesions noted Neuro General: patient alert, patient awake, patient oriented x3 and moves all extremities Cranial Nerves: CN's II-XI intact bilaterally Cognition: normal cognition Speech: speech normal Gait: normal gait Sensory Exam: no sensory deficits noted Extrem General: normal to inspection and capillary refill normal Course Orders Ordered: ED Orders 10/09/23 21:15 CT head/brain wo con Stat Vital Signs Vital signs: Vital Signs - 8 hr 10/09/23 20:32 10/09/23 22:08 Temperature 98.4 F 98.7 F Pulse Rate 113 H 92 H Respiratory Rate 18 18 Blood Pressure 139/95 H 135/73 Pulse Oximetry 100 98 Oxygen Delivery Method Room Air Room Air MDM - Headache Imaging Data CT scan - head: Radiologist's Impression: PROCEDURE: CT HEAD/BRAIN WO CON INDICATIONS: New onset headache and tingling in her hands and feet TECHNIQUE: Noncontrast 4.5 mm thick angled axial sections acquired from the foramen magnum to the vertex, with coronal and sagittal reformats. For radiation dose reduction, the following was used: automated exposure control, adjustment of mA and/or kV according to patient size. COMPARISON: None. FINDINGS: Image quality: Diagnostic. CSF spaces: Basal cisterns are patent. No extra-axial fluid collections. Ventricles are normal in size and shape. Brain: No midline shift. No intracranial masses or hemorrhage. [place]-white matter interface is normal. Skull and face: Calvarium and visualized facial bones are intact, without suspicious lesions. Sinuses: Visualized sinuses and mastoids are clear. IMPRESSION: CT head without acute intracranial abnormalities. No mass or mass effect visualized. MDM Narrative Medical decision making narrative: Subjective tingling to her left hand but reports no change in sensation. It is equal bilateral. Rest of her neurologic exam is unremarkable. Head CT is unremarkable. Low suspicion for CVA is her symptoms are bilateral and only involve her hands and her feet. Low suspicion for TIA. Low suspicion for intracranial hemorrhage or meningitis. I did encourage the patient to continue with having her MRI am discussing with her primary doctor about referral to see a headache specialist. She was given return precautions. She expressed understanding and agreement with plan. Discharge Plan Departure Patient Disposition: Home Clinical Impression: Headache, Distal paresthesia Instructions: DI for Headache Activity Restrictions/Additional Instructions: I do recommend that you continue with obtaining the MRI that was ordered by your primary doctor. You have no restrictions on your activities. You can continue to take ibuprofen/Motrin for the headaches. Return to the emergency department for new symptoms. Prescriptions: No Action (DME) Double Electric Breast Pump See Rx Instructions .Route .MEDSUPPLY Qty: 1 0RF Rx Instructions: As directed prenat.vits,nabila,[id number] Tablet 1 tab PO DAILY Referrals: Gosia Alfredo MD [Primary Care Provider] - Stand Alone Forms: Patient Portal/API
[2023-10-09 22:08] VITALS: BP 135/73; PULSE 92; RESP 18; TEMP 37.1; O2SAT 98
== END 2023-10-09 22:08 | disposition home or self-care (01) ==
PROVIDERS: Emergency Provider Emergency Medicine; PCP Anesthesiology Pain Medicine
DX: R51.9 Headache, unspecified (principal); R20.2 Paresthesia of skin
CPT/HCPCS: 70450; 99283